=== PATIENT | male | born 1990 | race Two or more races ===

== ENCOUNTER 2022-02-11 15:23 | Observation (INO) | payer SELFPAY ==
[2022-02-11] MEDS ORDERED: SODIUM CHLORIDE 1,000 ML IV STA (15:33)
[2022-02-11] MEDS ORDERED: dilTIAZem HCL 50 MG/10 ML - 10 ML VIAL IVPUSH ONE (15:53)
[2022-02-11] MEDS ORDERED: dilTIAZem HCL 50 MG/10 ML - 10 ML VIAL ONE (16:15)
[2022-02-11] MEDS ORDERED: dilTIAZem HCL 30 MG TABLET PO ONE ×2 (16:34→23:00)
[2022-02-11] MEDS ORDERED: dilTIAZem HCL 30 MG TABLET ONE (16:49)
[2022-02-11 17:47] LABS: BASO % 1.2 % (0-2.0); EOS % 0.9 % (0-4.5); HEMATOCRIT 45.8 % (35.4-49); HEMOGLOBIN 15.3 GM/dL (11.7-16.9); LYMPH % 27.6 % (8-40); MCH 27.1 pg (25.7-33.7); MCHC 33.4 g/dl (32.0-35.9); MEAN CELL VOLUME 80.9 fl (80-96); MEAN PLT VOLUME 8.7 fl (7.5-11.1); NEUT % 59.3 % (42.8-82.8); PLATELET COUNT 267 10^3/uL (134-434); RBC 5.66 M/mm3 (4.00-5.60); WHITE BLOOD COUNT 8.5 K/mm3 (4.0-10.0)
[2022-02-11 17:54] LABS: INR 1.16 (0.83-1.09); PROTHROMBIN TIME (PATIENT) 13.4 SEC (9.7-13.0)
[2022-02-11 18:09] LABS: ALBUMIN 3.4 g/dl (3.4-5.0); BLOOD UREA NITROGEN 7.7 mg/dL (7-18); CALCIUM 8.4 mg/dL (8.5-10.1); MAGNESIUM 1.9 mg/dL (1.8-2.4)
[2022-02-11 18:12] LABS: CREATININE 0.6 mg/dL (0.55-1.3)
[2022-02-11 18:14] LABS: BILIRUBIN,TOTAL 0.3 mg/dL (0.2-1)
[2022-02-11] MEDS ORDERED: ENOXAPARIN NA (PORCINE) 80 MG/0.8 ML DISP.SYRIN SQ SCH (19:00)
[2022-02-11 23:13] LABS: ARTERIAL BLD GAS O2 SATURATION 96.2 % (95-98); ARTERIAL BLOOD GAS BASE EXCESS 0 mmol/L (-2-2); ARTERIAL BLOOD GAS PO2 84.5 mmHg (80-100); ARTERIAL BLOOD GAS pH 7.388 (7.350-7.450)
[2022-02-12] MEDS ORDERED: dilTIAZem HCL 50 MG/10 ML - 10 ML VIAL ONE (00:06)
[2022-02-12] MEDS: dilTIAZem HCL 50 MG/10 ML - 10 ML VIAL IVPUSH PRN ×2 (00:15→04:31)
[2022-02-12 04:33] VITALS: RESP 18
[2022-02-12] MEDS ORDERED: dilTIAZem HCL 30 MG TABLET PO SCH ×3 (05:00→23:00)
[2022-02-12 06:48] LABS: HEMATOCRIT 52.7 % (35.4-49); HEMOGLOBIN 17.2 GM/dL (11.7-16.9); MCH 26.5 pg (25.7-33.7); MCHC 32.6 g/dl (32.0-35.9); MEAN CELL VOLUME 81.4 fl (80-96); MEAN PLT VOLUME 9.2 fl (7.5-11.1); PLATELET COUNT 297 10^3/uL (134-434); RBC 6.48 M/mm3 (4.00-5.60); RDW 15.3 % (11.9-15.9); WHITE BLOOD COUNT 7.8 K/mm3 (4.0-10.0)
[2022-02-12 07:07] LABS: CALCIUM 9.5 mg/dL (8.5-10.1)
[2022-02-12 07:08] LABS: ALBUMIN 3.8 g/dl (3.4-5.0); BLOOD UREA NITROGEN 8.7 mg/dL (7-18); MAGNESIUM 2.2 mg/dL (1.8-2.4)
[2022-02-12 07:10] LABS: CREATININE 0.7 mg/dL (0.55-1.3); PHOSPHOROUS 4.2 mg/dL (2.5-4.9)
[2022-02-12 07:11] LABS: TOT PROT 7.7 g/dl (6.4-8.2)
[2022-02-12 08:50] LABS: BILIRUBIN,TOTAL 0.4 mg/dL (0.2-1)
[2022-02-12 10:37] LABS: N-TERMINAL BNP 421.4 pg/ml (5-125)
[2022-02-12] MEDS ORDERED: ENOXAPARIN NA (PORCINE) 40 MG/0.4 ML DISP.SYRIN SQ ONE (11:36)
[2022-02-12] MEDS: ENOXAPARIN NA (PORCINE) 40 MG/0.4 ML DISP.SYRIN SQ SCH (11:42)
[2022-02-12 19:26] LABS: URINE APPEARANCE CLEAR; URINE BILIRUBIN NEGATIVE (NEGATIVE); URINE COLOR YELLOW; URINE GLUCOSE (UA) NEGATIVE (NEGATIVE); URINE KETONE NEGATIVE (NEGATIVE)
[2022-02-12 19:27] LABS: EPI CELLS 16.7 /uL (0-25.1); HYALINE CASTS 3.64 /uL (0-3.1); URINE BACTERIA 27.6 /uL (0-1359); URINE LEUK ESTERASE NEGATIVE (NEGATIVE); URINE NITRITE NEGATIVE (NEGATIVE); URINE PROTEIN NEGATIVE (NEGATIVE); URINE RBC 192.9 /uL (0-23.9); URINE UROBILINOGEN 0.2 mg/dL (0.2-1.0); URINE WBC 133.1 /uL (0-25.8)
[2022-02-12 20:45] LABS: METHADONE, UR NEGATIVE (NEGATIVE); PHENCYCLIDINE,URINE NEGATIVE (NEGATIVE); URINE BENZODIAZEPINES NEGATIVE (NEGATIVE)
[2022-02-12 20:46] LABS: COCAINE, UR NEGATIVE (NEGATIVE); OPIATES, URI NEGATIVE (NEGATIVE); URINE BARBITURATES NEGATIVE (NEGATIVE)
[2022-02-12 21:07] LABS: URINE AMPHETAMINES NEGATIVE (NEGATIVE)
[2022-02-13 07:54] VITALS: BMI 28.8
[2022-02-13] MEDS: ENOXAPARIN NA (PORCINE) 40 MG/0.4 ML DISP.SYRIN SQ SCH (09:38)
[2022-02-13] MEDS ORDERED: ASPIRIN 81 MG CHEWABLE TABLETS PO SCH (10:00)
[2022-02-13 15:40] VITALS: BP 127/87; PULSE 84; TEMP 99.8
== END 2022-02-13 17:05 | disposition home or self-care (01) ==
LOC: JER 15:23 → JERBED 18:23 → J4W 02-13 00:11
PROVIDERS: ADMIT Internal Medicine; ATTEND Internal Medicine
PROC: 3E033GC Introduction of Other Therapeutic Substance into Peripheral Vein, Percutaneous Approach (ICD-10-PCS; principal; 2022-02-11)
PROC: 3E023GC Introduction of Other Therapeutic Substance into Muscle, Percutaneous Approach (ICD-10-PCS; 2022-02-11)
PROC: 3E0337Z Introduction of Electrolytic and Water Balance Substance into Peripheral Vein, Percutaneous Approach (ICD-10-PCS; 2022-02-11)
DX: I48.91 Unspecified atrial fibrillation (principal); R00.2 Palpitations; R06.02 Shortness of breath; R94.8 Abnormal results of function studies of other organs and systems; Z29.8 Encounter for other specified prophylactic measures; R94.5 Abnormal results of liver function studies
CPT/HCPCS: 36415; 36600; 71045-TC-FY; 71275-TC; 76705-TC; 80053; 80061; 80307; 81003; 82550; 82803; 83735; 83880; 84100; 84443; 84484; 85025; 85027; 85379; 85610; 85651; 85730; 86140; 86705; 87340; 87517; 87522; 93005; 93010; 93306-TC; 99285-25; C9803-CS; G0378; Q9967; U0003; U0005

== ENCOUNTER 2022-02-15 12:06 | Emergency (ER) | payer SELFPAY ==
[2022-02-15 12:17] VITALS: BP 123/77; PULSE 93; RESP 18; TEMP 98.7; BMI 28.8
== END 2022-02-15 15:02 | disposition home or self-care (01) ==
LOC: JERFT 12:06
DX: T78.49XA Other allergy, initial encounter (principal); T46.5X5A Adverse effect of other antihypertensive drugs, initial encounter
CPT/HCPCS: 93005; 93010; 99285-25